=== PATIENT | male | born 1970 | race Two or more races ===

== ENCOUNTER 2016-10-30 16:19 | Emergency (ER) | payer OTHER ==
[~2016-10-30] VITALS: Ht 165.1 cm; Wt 65.8 kg
--- NOTE | ~2016-10-30 | CR141 ---
[facility] A Service of [facility] & [facility] RADIOLOGY TEXT RESULTS PATIENT: SUMEET LEYVA LOCATION: [facility] : 74 UNIT #: [id number] AGE: [address]: Jania Solis APRN SEX: M ORDER DR: [id number] [facility] [address] [place], [place] [address] [id number] E MR#: [id number] Acc #: [id number] NAME: SUMEET LEYVA : 1970 SEX: M STUDY DATE/TIME: 10/30/2016 17:56 UNIT: [facility] ROOM: STUDY DESCRIPTION: CR Hand Min 3 Views Lt Attending Physician: Jania Solis A.P.R.N. Referring Physician: Marty Sheehan M.D. Ordering Physician: Ed Claudio Cabezas M.D. Primary Care Physician: No Primary Care Physician MEDICAL IMAGING REPORT This report is preliminary unless electronic signature is present EXAM Hand, 3 views, left. HISTORY Fell on steps today with now pain and swelling left hand. COMMENT Three views of the left hand reviewed. COMPARISON STUDIES No comparison. FINDINGS There is a small well-corticated ossific density seen radial side base of the second proximal phalanx which is probably due to remote injury. No acute fracture, dislocation, or radiopaque foreign body is suspected. IMPRESSION No acute injury appreciated, left hand. Dictated by... Madeleine Blanton M.D. THIS IS AN ELECTRONICALLY VERIFIED REPORT Madeleine Blanton M.D. at 10/31/2016 2:31 PM ERICK/kennedy TD: 10/30/2016 23:15 JOB #: [id number] MEDICAL IMAGING REPORT Page 1 of 1 COPY
== END 2016-10-30 18:52 | disposition home or self-care (01) ==
LOC: CED 16:19 → CFTX 16:19
DX: S63.642A Sprain of metacarpophalangeal joint of left thumb, initial encounter (principal); W10.9XXA Fall (on) (from) unspecified stairs and steps, initial encounter; Y92.009 Unspecified place in unspecified non-institutional (private) residence as the place of occurrence of the external cause
CPT/HCPCS: 29125; 73130; 99283